=== PATIENT | female | born 1990 | race American Indian/Alaskan Native ===

== ENCOUNTER 2023-02-24 19:08 | Emergency (ER) | payer OTHER ==
[~2023-02-24] VITALS: Ht 160 cm; Wt 82.9 kg
[~2023-02-24 19:08] MED LIST: FAMO20TA8 PO; IBUP-2029 MT; KEPP500 PO
[2023-02-24 19:27] VITALS: BP 141/101; PULSE 74; RESP 18; TEMP 98.6; O2SAT 99
== END 2023-02-24 21:58 | disposition home or self-care (01) ==
LOC: ER 19:08
DX: Z48.02 Encounter for removal of sutures (principal); I10 Essential (primary) hypertension; Z86.59 Personal history of other mental and behavioral disorders
CPT/HCPCS: 99281